=== PATIENT | female | born 1995 | race Caucasian/White ===

== ENCOUNTER 2017-07-22 13:12 | Emergency (ER) | payer MEDICAID ==
[~2017-07-22] VITALS: Ht 152.4 cm; Wt 59.4 kg
[2017-07-22 13:45] VITALS: Ht 152.4 cm; Wt 59.4 kg
[2017-07-22 17:00] VITALS: BP 120/78
== END 2017-07-22 17:20 | disposition home or self-care (01) ==
LOC: ED 13:12
DX: M25.512 Pain in left shoulder (principal)
CPT/HCPCS: 20552; J2001; J3301; J3490

== ENCOUNTER 2017-12-11 21:59 | Emergency (ER) | payer MEDICAID ==
[~2017-12-11] VITALS: Ht 152.4 cm; Wt 56.2 kg
[2017-12-11 22:00] VITALS: Ht 152.4 cm; Wt 56.2 kg
[2017-12-12 00:15] VITALS: BP 102/64
== END 2017-12-12 00:15 | disposition home or self-care (01) ==
LOC: ED 21:59
DX: M54.12 Radiculopathy, cervical region (principal)
CPT/HCPCS: J7512

== ENCOUNTER 2018-08-19 15:23 | Emergency (ER) | payer OTHER ==
[~2018-08-19] VITALS: Ht 152.4 cm; Wt 54.4 kg
[2018-08-19 15:30] VITALS: Ht 152.4 cm; Wt 54.4 kg
[2018-08-19 16:42] VITALS: BP 103/73
== END 2018-08-19 16:42 | disposition home or self-care (01) ==
LOC: ED 15:23
DX: M54.12 Radiculopathy, cervical region (principal); Z98.890 Other specified postprocedural states

== ENCOUNTER 2018-11-03 19:49 | Emergency (ER) | payer OTHER ==
[~2018-11-03] VITALS: Ht 152.4 cm; Wt 52.6 kg
[2018-11-03 20:40] VITALS: Ht 152.4 cm; Wt 52.6 kg
[2018-11-03 21:11] LABS: BASOPHIL % 0.3 % (0-2); PLATELET COUNT 182 x10^3mcL (130-400); RED CELL DISTRIBUTION WIDTH 13.4 % (11.5-14.5)
[2018-11-03 21:20] LABS: CALCIUM 8.9 mg/dL (8.5-10.1); CARBON DIOXIDE 26.4 mmol/L (21-32); CHLORIDE SERUM 104 mmol/L (98-107); CREATININE SERUM 0.7 mg/dL (0.6-1.0); GFR1 > 60 mL/min; GLUCOSE SERUM 103 mg/dL (74-106); POTASSIUM SERUM 3.4 mmol/L (3.5-5.1); SODIUM SERUM 138 mmol/L (136-145)
[2018-11-03 21:25] LABS: ALBUMIN 3.9 g/dL (3.4-5.0); ALKALINE PHOSPHATASE 65 U/L (46-116); ALT/SGPT 30 U/L (14-59); AST/SGOT 13 U/L (15-37); BILIRUBIN TOTAL 0.6 mg/dL (0.20-1.00); LIPASE 77 IU/L (73-393); TOTAL PROTEIN, SERUM 7.5 g/dL (6.4-8.2)
[2018-11-04 01:21] VITALS: BP 99/55
== END 2018-11-04 01:21 | disposition home or self-care (01) ==
LOC: ED 19:49
PROVIDERS: Emergency Medicine
DX: N83.202 Unspecified ovarian cyst, left side (principal); Z98.890 Other specified postprocedural states
CPT/HCPCS: 36415; J0500; J1885; J3010; Q0162

== ENCOUNTER 2019-06-05 18:44 | Emergency (ER) | payer OTHER ==
[~2019-06-05] VITALS: Ht 157.5 cm; Wt 52.2 kg
[2019-06-05 19:05] VITALS: Ht 157.5 cm; Wt 52.2 kg
[2019-06-05 20:01] VITALS: BP 110/84
== END 2019-06-05 20:01 | disposition home or self-care (01) ==
LOC: ED 18:44
DX: J06.9 Acute upper respiratory infection, unspecified (principal)

== ENCOUNTER 2020-07-03 15:59 | Emergency (ER) | payer OTHER ==
[~2020-07-03] VITALS: Ht 152.4 cm; Wt 55.8 kg
[2020-07-03 16:09] VITALS: Ht 152.4 cm; Wt 55.8 kg
[2020-07-03 18:29] VITALS: BP 119/59
== END 2020-07-03 18:29 | disposition home or self-care (01) ==
LOC: ED 15:59
DX: M25.512 Pain in left shoulder (principal)